=== PATIENT | male | born 1975 | race Caucasian/White ===

== ENCOUNTER 2018-05-20 11:28 | Inpatient (IN) | payer MEDICAID ==
[~2018-05-20] VITALS: Ht 175.3 cm; Wt 88.3 kg
[2018-05-20] MEDS ORDERED: SODIUM CHLORIDE 0.9% 1,000 ML IVB ONE (12:03)
[2018-05-20 12:14] LABS: Urine Bacteria NONE SEEN /hpf (None Seen); Urine Blood 1+ /uL (Negative); Urine Specific Gravity 1.043 (1.001-1.035); Urine WBC 1 /hpf (0 - 3)
[2018-05-20] MEDS ORDERED: ONDANSETRON HCL 4 MG/2 ML VIAL IV ONE (12:15)
[2018-05-20 12:44] LABS: Basophils # (auto) 0 uL; Basophils % (auto) 0.2 % (0.0-2.0); Eosinophils # (auto) 0 uL; Hemoglobin 11.6 g/dL (13.5-17.5); Lymphocytes # (auto) 0.3 uL; Monocytes # (auto) 1.4 uL
[2018-05-20 12:46] LABS: Lymphocytes % (auto) 2.6 % (10.0-50.0); Mean Corpuscular Hemoglobin 23.4 pg (28.0-32.0); Mean Corpuscular Volume 70.8 fL (80.0-100.0); Monocytes % (auto) 13.1 % (0.0-12.0); Neutrophils % (auto) 84.1 % (37.0-80.0); Platelet Count (auto) 455 10^3/uL (140-450); Red Blood Cells 4.95 10^6/uL (4.5-5.90); Red Cell Distribution Width 15.7 % (11.8-14.3); White Blood Cell 10.7 10^3/uL (4.4-10.8)
[2018-05-20 12:58] LABS: INR 0.98 (0.9-1.15); Partial Thromboplastin Time 30.2 sec (23.78-33.04); Prothrombin Time 10.5 sec (9.27-12.13)
[2018-05-20 13:04] LABS: Amylase 41 U/L (25-115); Lipase 297 U/L (73-393)
[2018-05-20 13:08] LABS: Alanine Aminotransferase 26 U/L (16-61); Albumin 2.1 g/dL (3.4-5.0); Alkaline Phosphatase 104 U/L (45-117); Anion Gap 10 (5-15); Aspartate Aminotransferase 21 U/L (15-37); BUN/Creatinine Ratio 30.7; Bilirubin, Total 0.6 mg/dL (0.2-1.0); Blood Urea Nitrogen 27 mg/dL (7-18); Calcium 8.9 mg/dL (8.5-10.1); Carbon Dioxide 20 mmol/L (21-32); Chloride 97 mmol/L (98-107); GFR African American 122 mL/min; GFR Non-African American 101 mL/min; Glucose 325 mg/dL (74-106); Magnesium 2.7 mg/dL (1.6-2.6); Potassium 3.8 mmol/L (3.5-5.1); Sodium 127 mmol/L (136-145); Total Protein 8.3 g/dL (6.4-8.2)
[2018-05-20] MEDS ORDERED: MORPHINE SULF INJ 2 MG/ML SYRINGE 1ML IV ONE (14:00)
[2018-05-20] MEDS: SODIUM CHLORIDE 0.9% 1,000 ML IV SCH ×2 (14:26→22:33)
[2018-05-20] MEDS ORDERED: SODIUM CHLORIDE 0.9% 2,000 ML IV ONE (14:30)
[2018-05-20] MEDS ORDERED: MORPHINE SULF INJ 2 MG/ML SYRINGE 1ML IV PRN (14:30)
[2018-05-20] MEDS ORDERED: DEXTROSE (50%) 50ML SYRG IV PRN (14:30)
[2018-05-20] MEDS ORDERED: NITROGLYCERIN 0.4 MG SL TAB SL PRN (14:30)
[2018-05-20] MEDS ORDERED: ACETAMINOPHEN 325 MG TAB PO PRN (14:30)
[2018-05-20] MEDS ORDERED: TEMAZEPAM 15 MG CAP PO PRN (14:30)
[2018-05-20] MEDS: FAMOTIDINE 20 MG TAB PO SCH ×2 (15:07→22:00)
[2018-05-20] MEDS: ONDANSETRON HCL 4 MG/2 ML VIAL IV PRN (15:08)
[2018-05-20] MEDS: InsuLIN REG 1unit/0.01ml Soln (100units/ml) SC SCH ×2 (17:00→22:28)
[2018-05-20 17:12] VITALS: BP 138/88
[2018-05-20] MEDS: ACCU-CHEK COMFORT CURVE STRIP VI SCH ×2 (17:29→22:28)
[2018-05-20] MEDS: Glucerna Carbsteady SHAKE Vanilla 8oz PO SCH ×2 (18:00→19:23)
[2018-05-20] MEDS: MORPHINE SULF INJ 2 MG/ML SYRINGE 1ML IV PRN (19:45)
[2018-05-20] MEDS ORDERED: VANCOMYCIN PER PHARMACY 0 MG IV SCH (20:00)
[2018-05-20] MEDS ORDERED: PIPERACILLIN-TAZOB 3.375GM 100 ML IV ONE (21:30)
[2018-05-20] MEDS ORDERED: VANCOMYCIN 1GM/250ML 250 ML IV ONE (21:30)
[2018-05-20 22:43] VITALS: BP 127/87
[2018-05-21] MEDS: PIPERACILLIN-TAZOB 3.375GM 100 ML IV SCH ×3 (05:14→18:00)
[2018-05-21 05:17] VITALS: BP 120/74
[2018-05-21] MEDS: Glucerna Carbsteady SHAKE Vanilla 8oz PO SCH ×4 (06:00→22:00)
[2018-05-21] MEDS: MORPHINE SULF INJ 2 MG/ML SYRINGE 1ML IV PRN ×6 (06:59→21:13)
[2018-05-21] MEDS: SODIUM CHLORIDE 0.9% 1,000 ML IV SCH ×3 (07:06→23:46)
[2018-05-21 07:12] LABS: Basophils # (auto) 0 uL; Eosinophils # (auto) 0 uL; Lymphocytes # (auto) 0.4 uL; Platelet Count (auto) 446 10^3/uL (140-450)
[2018-05-21 07:14] LABS: Basophils % (auto) 0.1 % (0.0-2.0); Eosinophils % (auto) 0.3 % (0.0-7.0); Hematocrit 33.1 % (41.0-53.0); Hemoglobin 10.4 g/dL (13.5-17.5); Lymphocytes % (auto) 4.5 % (10.0-50.0); Mean Corpuscular Hgb Conc. 31.3 g/dL (32.0-36.0); Mean Corpuscular Volume 71.1 fL (80.0-100.0); Monocytes # (auto) 1.3 uL; Monocytes % (auto) 14.8 % (0.0-12.0); Neutrophils % (auto) 80.3 % (37.0-80.0); Red Blood Cells 4.66 10^6/uL (4.5-5.90); Red Cell Distribution Width 15.7 % (11.8-14.3); White Blood Cell 8.7 10^3/uL (4.4-10.8)
[2018-05-21 07:16] LABS: Mean Corpuscular Hemoglobin 22.3 pg (28.0-32.0)
[2018-05-21 07:26] LABS: Albumin 1.7 g/dL (3.4-5.0); BUN/Creatinine Ratio 31.4; Bilirubin, Total 0.5 mg/dL (0.2-1.0); Calcium 8.1 mg/dL (8.5-10.1); Potassium 3.6 mmol/L (3.5-5.1)
[2018-05-21] MEDS: ACCU-CHEK COMFORT CURVE STRIP VI SCH ×4 (07:30→21:11)
[2018-05-21] MEDS: InsuLIN REG 1unit/0.01ml Soln (100units/ml) SC SCH ×4 (07:30→22:40)
[2018-05-21] MEDS: DOCUSATE SOD 100 MG CAP PO PRN ×2 (07:32→17:12)
[2018-05-21 08:00] VITALS: BP 141/94
[2018-05-21] MEDS: HYDROcodone-ACET 5/325MG TAB PO PRN ×2 (09:10→18:37)
[2018-05-21] MEDS: FAMOTIDINE 20 MG TAB PO SCH ×2 (10:00→21:11)
[2018-05-21] MEDS: MULTIPLE VITAMIN TAB PO SCH (10:00)
[2018-05-21] MEDS: VANCOMYCIN 1,250 MG in D5W 5% 250 ML IV SCH ×2 (10:00→21:11)
[2018-05-21 12:00] VITALS: BP 127/75
[2018-05-21 16:00] VITALS: BP 123/85
[2018-05-21] MEDS: ONDANSETRON HCL 4 MG/2 ML VIAL IV PRN (21:12)
[2018-05-21 21:57] VITALS: BP 122/85
[2018-05-22] MEDS: PIPERACILLIN-TAZOB 3.375GM 100 ML IV SCH ×4 (02:17→18:00)
[2018-05-22 04:53] VITALS: BP 124/78
[2018-05-22] MEDS: ONDANSETRON HCL 4 MG/2 ML VIAL IV PRN (05:08)
[2018-05-22] MEDS: MORPHINE SULF INJ 2 MG/ML SYRINGE 1ML IV PRN (05:08)
[2018-05-22] MEDS: DOCUSATE SOD 100 MG CAP PO PRN (05:10)
[2018-05-22] MEDS: Glucerna Carbsteady SHAKE Vanilla 8oz PO SCH ×4 (06:00→22:15)
[2018-05-22] MEDS: ACCU-CHEK COMFORT CURVE STRIP VI SCH ×4 (06:53→22:15)
[2018-05-22] MEDS: InsuLIN REG 1unit/0.01ml Soln (100units/ml) SC SCH ×4 (06:53→22:15)
[2018-05-22 08:13] VITALS: BP 131/73
[2018-05-22] MEDS: SODIUM CHLORIDE 0.9% 1,000 ML IV SCH ×2 (08:17→16:26)
[2018-05-22 09:00] VITALS: BP 131/73
[2018-05-22] MEDS ORDERED: VANCOMYCIN 1GM/250ML 0 ML IV ONE (09:44)
[2018-05-22] MEDS: FAMOTIDINE 20 MG TAB PO SCH ×2 (10:00→22:14)
[2018-05-22] MEDS: MULTIPLE VITAMIN TAB PO SCH (10:01)
[2018-05-22] MEDS: VANCOMYCIN 1,250 MG in D5W 5% 250 ML IV SCH ×2 (10:01→22:00)
[2018-05-22 13:00] VITALS: BP 140/89
[2018-05-22 17:00] VITALS: BP 149/86
[2018-05-22 21:36] VITALS: BP 141/94
[2018-05-23] MEDS: SODIUM CHLORIDE 0.9% 1,000 ML IV SCH ×3 (00:46→23:01)
[2018-05-23 05:15] VITALS: BP 151/93
[2018-05-23] MEDS: PIPERACILLIN-TAZOB 3.375GM 100 ML IV SCH ×2 (05:53)
[2018-05-23] MEDS: Glucerna Carbsteady SHAKE Vanilla 8oz PO SCH ×4 (05:54→22:00)
[2018-05-23] MEDS: ACCU-CHEK COMFORT CURVE STRIP VI SCH ×4 (06:48→22:00)
[2018-05-23] MEDS: InsuLIN REG 1unit/0.01ml Soln (100units/ml) SC SCH ×4 (06:49→22:32)
[2018-05-23 06:59] LABS: Basophils # (auto) 0 uL; Basophils % (auto) 0.2 % (0.0-2.0); Eosinophils # (auto) 0 uL; Lymphocytes # (auto) 0.3 uL; Monocytes # (auto) 1.4 uL
[2018-05-23 07:01] LABS: Eosinophils % (auto) 0.3 % (0.0-7.0); Hematocrit 31.6 % (41.0-53.0); Hemoglobin 10.4 g/dL (13.5-17.5); Lymphocytes % (auto) 3.5 % (10.0-50.0); Mean Corpuscular Hemoglobin 23.1 pg (28.0-32.0); Mean Corpuscular Hgb Conc. 32.7 g/dL (32.0-36.0); Mean Corpuscular Volume 70.6 fL (80.0-100.0); Monocytes % (auto) 17.3 % (0.0-12.0); Neutrophils # (auto) 6.4 uL; Neutrophils % (auto) 78.7 % (37.0-80.0); Platelet Count (auto) 483 10^3/uL (140-450); Red Blood Cells 4.48 10^6/uL (4.5-5.90); Red Cell Distribution Width 15.9 % (11.8-14.3); White Blood Cell 8.1 10^3/uL (4.4-10.8)
[2018-05-23 07:23] LABS: BUN/Creatinine Ratio 19.3; Calcium 8.5 mg/dL (8.5-10.1)
[2018-05-23 08:00] VITALS: BP 135/90
[2018-05-23] MEDS: MULTIPLE VITAMIN TAB PO SCH (10:00)
[2018-05-23 12:00] VITALS: BP 141/84
[2018-05-23] MEDS: FAMOTIDINE 20 MG TAB PO SCH (13:02)
[2018-05-23] MEDS ORDERED: MORPHINE SULF INJ 2 MG/ML SYRINGE 1ML IV PRN ×2 (13:30)
[2018-05-23] MEDS ORDERED: HYDROcodone-ACET 5/325MG TAB PO PRN (13:30)
[2018-05-23] MEDS ORDERED: ALBUMIN 25% 50 ML IV STA (15:37)
[2018-05-23] MEDS ORDERED: ALBUMIN 25% 50 ML IV ONE (15:40)
[2018-05-23 16:00] VITALS: BP 123/67
[2018-05-23 22:26] VITALS: BP 118/72
[2018-05-24 04:59] VITALS: BP 138/68
[2018-05-24] MEDS ORDERED: MAGNESIUM CITRATE SOLUTION 300 ML BTL ONE (05:58)
[2018-05-24] MEDS: Glucerna Carbsteady SHAKE Vanilla 8oz PO SCH ×4 (06:00→22:00)
[2018-05-24] MEDS ORDERED: MAGNESIUM CITRATE SOLUTION 300 ML BTL PO ONE (06:00)
[2018-05-24] MEDS: ACCU-CHEK COMFORT CURVE STRIP VI SCH ×4 (06:14→22:55)
[2018-05-24] MEDS: InsuLIN REG 1unit/0.01ml Soln (100units/ml) SC SCH ×4 (06:15→22:56)
[2018-05-24 08:00] VITALS: BP 133/80
[2018-05-24] MEDS: MULTIPLE VITAMIN TAB PO SCH (10:00)
[2018-05-24] MEDS ORDERED: SODIUM CHLORIDE LOCK 10 ML ONE (10:08)
[2018-05-24] MEDS ORDERED: FLUMAZENIL 0.1 MG/ML INJ 10ML MDV IV ONE (10:08)
[2018-05-24] MEDS ORDERED: diphenhdrAMINE HCL 50 MG/1 ML VL ONE (10:08)
[2018-05-24] MEDS ORDERED: NALOXONE HCL 0.4 MG/ML VIAL ONE (10:08)
[2018-05-24] MEDS: fentaNYL CITRATE 100 MCG/2 ML VL ONE ×2 (11:22→11:29)
[2018-05-24] MEDS: MIDAZOLAM HCL 5 MG/ML-1ML VIAL ONE ×2 (11:22→11:29)
[2018-05-24] MEDS ORDERED: CEFTRIAXONE SODIUM 2 GM in D5W 5% 50 ML IV SCH (11:45)
[2018-05-24 13:00] VITALS: BP 127/80
[2018-05-24 16:00] VITALS: BP 137/87
[2018-05-24 22:00] VITALS: BP 133/92
[2018-05-25 05:20] VITALS: BP 110/69
[2018-05-25] MEDS: Glucerna Carbsteady SHAKE Vanilla 8oz PO SCH ×4 (06:00→21:55)
[2018-05-25 06:36] LABS: INR 1.08 (0.9-1.15); Partial Thromboplastin Time 29.5 sec (23.78-33.04); Prothrombin Time 11.5 sec (9.27-12.13)
[2018-05-25] MEDS: ACCU-CHEK COMFORT CURVE STRIP VI SCH ×4 (07:09→21:56)
[2018-05-25] MEDS: InsuLIN REG 1unit/0.01ml Soln (100units/ml) SC SCH ×4 (07:10→21:56)
[2018-05-25 08:54] VITALS: BP 107/66
[2018-05-25] MEDS: MULTIPLE VITAMIN TAB PO SCH (10:00)
[2018-05-25 12:13] VITALS: BP 130/87
[2018-05-25 17:04] VITALS: BP 139/79
[2018-05-25 17:12] LABS: Albumin 1.7 g/dL (3.4-5.0); Bilirubin, Total 0.3 mg/dL (0.2-1.0); Calcium 7.8 mg/dL (8.5-10.1); Total Protein 6.4 g/dL (6.4-8.2)
[2018-05-25] MEDS: PIPERACILLIN-TAZOB 3.375GM 100 ML IV SCH (18:31)
[2018-05-25] MEDS: SODIUM CHLORIDE 0.9% 1,000 ML IV SCH (18:33)
[2018-05-25 22:03] VITALS: BP 121/69
[2018-05-26 01:01] LABS: Urine Bacteria NONE SEEN /hpf (None Seen); Urine Blood Negative /uL (Negative); Urine Specific Gravity 1.024 (1.001-1.035); Urine WBC 1 /hpf (0 - 3)
[2018-05-26 05:50] VITALS: BP 127/82
[2018-05-26] MEDS: Glucerna Carbsteady SHAKE Vanilla 8oz PO SCH ×2 (06:00→12:31)
[2018-05-26] MEDS: PIPERACILLIN-TAZOB 3.375GM 100 ML IV SCH ×4 (06:09→17:22)
[2018-05-26] MEDS: SODIUM CHLORIDE 0.9% 1,000 ML IV SCH ×2 (06:09→22:42)
[2018-05-26] MEDS: ACCU-CHEK COMFORT CURVE STRIP VI SCH ×3 (06:10→17:23)
[2018-05-26] MEDS: InsuLIN REG 1unit/0.01ml Soln (100units/ml) SC SCH ×3 (06:10→17:23)
[2018-05-26 06:34] LABS: Basophils # (auto) 0 uL; Eosinophils # (auto) 0.1 uL; Eosinophils % (auto) 0.7 % (0.0-7.0); Monocytes # (auto) 1.3 uL; Monocytes % (auto) 12.6 % (0.0-12.0)
[2018-05-26 06:37] LABS: Basophils % (auto) 0.3 % (0.0-2.0); Hematocrit 31.1 % (41.0-53.0); Hemoglobin 10.3 g/dL (13.5-17.5); Lymphocytes # (auto) 0.5 uL; Mean Corpuscular Hemoglobin 23.1 pg (28.0-32.0); Mean Corpuscular Volume 70.1 fL (80.0-100.0); Neutrophils # (auto) 8.3 uL; Neutrophils % (auto) 81.4 % (37.0-80.0); Platelet Count (auto) 609 10^3/uL (140-450); Red Blood Cells 4.44 10^6/uL (4.5-5.90); Red Cell Distribution Width 16.6 % (11.8-14.3); White Blood Cell 10.2 10^3/uL (4.4-10.8)
[2018-05-26 06:53] LABS: % Iron Saturation 6.1 % (20-55)
[2018-05-26 06:54] LABS: BUN/Creatinine Ratio 8.5; Calcium 7.8 mg/dL (8.5-10.1); Potassium 3.7 mmol/L (3.5-5.1)
[2018-05-26] MEDS: MULTIPLE VITAMIN TAB PO SCH (08:42)
[2018-05-26 09:02] VITALS: BP 120/81
[2018-05-26] MEDS ORDERED: fentaNYL CITRATE 100 MCG/2 ML VL ONE (11:18)
[2018-05-26] MEDS ORDERED: ONDANSETRON HCL 4 MG/2 ML VIAL ONE (11:18)
[2018-05-26] MEDS ORDERED: SODIUM CHLORIDE LOCK 20 ML ONE (11:18)
[2018-05-26] MEDS ORDERED: MIDAZOLAM HCL 1MG/1ML-2 ML VIAL ONE (11:18)
[2018-05-26] MEDS ORDERED: PROPOFOL 10 MG/ML 20 ML IV ONE (11:18)
[2018-05-26] MEDS ORDERED: ROCURONIUM 10MG/ML 10ML VIAL IV ONE (11:18)
[2018-05-26] MEDS ORDERED: fentaNYL CITRATE 10 ML ONE (11:18)
[2018-05-26] MEDS ORDERED: HYDROmorphone HCL 2 MG/ML VL ONE (11:18)
[2018-05-26] MEDS ORDERED: ceFOXitin 2GM/100ML 100 ML IV ONE (11:22)
[2018-05-26] MEDS ORDERED: LIDOCAINE 1% (LOCAL ANESTH.) PF 5ml SDV ONE ×2 (11:33→12:13)
[2018-05-26] MEDS ORDERED: BUPIVACAINE W/ EPINEPH 0.25% INJ 50ML MDV ONE (11:33)
[2018-05-26] MEDS ORDERED: BUPIVACAINE 0.25% INJ 50ML VIAL ONE (11:33)
[2018-05-26] MEDS ORDERED: LIDOCAINE W/ EPINEPHRINE 1% 20ML VIAL ONE (11:33)
[2018-05-26] MEDS ORDERED: SODIUM FERR GLUC 62.5MG/5ML 125 MG in SODIUM CHL 0.9% 100 ML IV SCH (12:00)
[2018-05-26] MEDS ORDERED: fentaNYL CITRATE 5 ML ONE (13:35)
[2018-05-26] MEDS ORDERED: GLYCOPYRROLATE 0.2 MG/ML 1ML VIAL ONE (13:53)
[2018-05-26] MEDS ORDERED: NEOSTIGMINE 1 MG/ML INJ (10mg/10ML VIAL) ONE (13:53)
[2018-05-26] MEDS ORDERED: KETOROLAC TROMETH 60MG/2ML VIAL IM ONE (13:53)
[2018-05-26] MEDS ORDERED: ONDANSETRON HCL 4 MG/2 ML VIAL IV PRN (14:30)
[2018-05-26] MEDS ORDERED: MORPHINE SULFATE 4 MG/ML SYR/VIAL IV PRN (14:30)
[2018-05-26] MEDS ORDERED: DEXTROSE (50%) 50ML SYRG IV PRN (14:30)
[2018-05-26] MEDS ORDERED: METOCLOPRAMIDE HCL 5MG/ml INJ 2ml VIAL IV ONE (14:45)
[2018-05-26] MEDS ORDERED: HYDROmorphone HCL 2 MG/ML VL IV PRN (14:45)
[2018-05-26] MEDS ORDERED: ACCU-CHEK COMFORT CURVE STRIP VI ONE (14:45)
[2018-05-26] MEDS: MORPHINE SULF INJ 2 MG/ML SYRINGE 1ML IV PRN (16:16)
[2018-05-26] MEDS: ENOXAPARIN SOD 40 MG/0.4 ML SYRINGE SC SCH (16:16)
[2018-05-26 21:57] VITALS: BP 131/55
[2018-05-26] MEDS ORDERED: ACETAMINOPHEN IV 100 ML IV ONE (22:11)
[2018-05-26 22:35] LABS: Eosinophils # (auto) 0 uL; Eosinophils % (auto) 0.1 % (0.0-7.0); Neutrophils # (auto) 12.2 uL
[2018-05-26 22:37] LABS: Basophils # (auto) 0 uL; Basophils % (auto) 0.2 % (0.0-2.0); Hematocrit 37.4 % (41.0-53.0); Hemoglobin 11.8 g/dL (13.5-17.5); Lymphocytes # (auto) 0.3 uL; Lymphocytes % (auto) 2.4 % (10.0-50.0); Mean Corpuscular Hemoglobin 22.4 pg (28.0-32.0); Mean Corpuscular Hgb Conc. 31.4 g/dL (32.0-36.0); Mean Corpuscular Volume 71.5 fL (80.0-100.0); Monocytes # (auto) 1.1 uL; Monocytes % (auto) 8.3 % (0.0-12.0); Platelet Count (auto) 717 10^3/uL (140-450); Red Blood Cells 5.24 10^6/uL (4.5-5.90); Red Cell Distribution Width 16.5 % (11.8-14.3); White Blood Cell 13.8 10^3/uL (4.4-10.8)
[2018-05-26 22:39] LABS: BUN/Creatinine Ratio 8.2; Calcium 7.5 mg/dL (8.5-10.1); Potassium 4.2 mmol/L (3.5-5.1)
[2018-05-27] MEDS: PIPERACILLIN-TAZOB 3.375GM 100 ML IV SCH ×5 (00:08→23:05)
[2018-05-27] MEDS: InsuLIN REG 1unit/0.01ml Soln (100units/ml) SC SCH ×5 (00:08→23:15)
[2018-05-27] MEDS: ACCU-CHEK COMFORT CURVE STRIP VI SCH ×5 (00:09→23:15)
[2018-05-27] MEDS: MORPHINE SULF INJ 2 MG/ML SYRINGE 1ML IV PRN (02:02)
[2018-05-27 04:52] VITALS: BP 106/70
[2018-05-27] MEDS ORDERED: ACETAMINOPHEN IV 1000 MG/100ML (10MG/ML) IV PRN (06:45)
[2018-05-27 08:00] VITALS: BP 109/65
[2018-05-27] MEDS ORDERED: FUROSEMIDE 20 MG/2 ML VIAL IV ONE (09:00)
[2018-05-27] MEDS: PANTOPRAZOLE 40 MG/10 ML VIAL IV SCH (10:22)
[2018-05-27] MEDS: ENOXAPARIN SOD 40 MG/0.4 ML SYRINGE SC SCH (10:22)
[2018-05-27 12:00] VITALS: BP 120/63
[2018-05-27] MEDS: SODIUM CHLORIDE 0.9% 1,000 ML IV SCH (13:09)
[2018-05-27 17:00] VITALS: BP 126/70
[2018-05-27 20:00] VITALS: BP 111/76
[2018-05-27 21:55] VITALS: BP 119/76
[2018-05-28] MEDS: SODIUM CHLORIDE 0.9% 1,000 ML IV SCH ×2 (01:42→16:00)
[2018-05-28 04:32] VITALS: BP 108/68
[2018-05-28] MEDS: PIPERACILLIN-TAZOB 3.375GM 100 ML IV SCH ×4 (05:24→18:30)
[2018-05-28] MEDS: ACCU-CHEK COMFORT CURVE STRIP VI SCH ×3 (05:56→17:49)
[2018-05-28] MEDS: InsuLIN REG 1unit/0.01ml Soln (100units/ml) SC SCH ×3 (05:56→18:03)
[2018-05-28 06:29] LABS: Eosinophils # (auto) 0 uL; Hemoglobin 8.9 g/dL (13.5-17.5); Monocytes # (auto) 1.2 uL
[2018-05-28 06:31] LABS: Basophils # (auto) 0.1 uL; Basophils % (auto) 0.6 % (0.0-2.0); Eosinophils % (auto) 0.2 % (0.0-7.0); Hematocrit 27.9 % (41.0-53.0); Lymphocytes # (auto) 0.5 uL; Lymphocytes % (auto) 3.9 % (10.0-50.0); Mean Corpuscular Hemoglobin 22.4 pg (28.0-32.0); Mean Corpuscular Hgb Conc. 31.8 g/dL (32.0-36.0); Mean Corpuscular Volume 70.2 fL (80.0-100.0); Monocytes % (auto) 8.9 % (0.0-12.0); Neutrophils # (auto) 11.4 uL; Neutrophils % (auto) 86.4 % (37.0-80.0); Platelet Count (auto) 698 10^3/uL (140-450); Red Blood Cells 3.97 10^6/uL (4.5-5.90); Red Cell Distribution Width 16.6 % (11.8-14.3); White Blood Cell 13.2 10^3/uL (4.4-10.8)
[2018-05-28 06:44] LABS: BUN/Creatinine Ratio 12.5; Calcium 7.2 mg/dL (8.5-10.1)
[2018-05-28 08:38] VITALS: BP 117/67
[2018-05-28] MEDS ORDERED: CLINIMIX PER PHARMACY 0 ML IV SCH (09:00)
[2018-05-28 09:52] LABS: Phosphorus 3.1 mg/dL (2.5-4.90); Pre Albumin 3.5 mg/dL (20.0-40.0)
[2018-05-28] MEDS: PANTOPRAZOLE 40 MG/10 ML VIAL IV SCH (10:11)
[2018-05-28] MEDS: ENOXAPARIN SOD 40 MG/0.4 ML SYRINGE SC SCH (10:12)
[2018-05-28] MEDS ORDERED: IOHEXOL 300 MG/ML 100ML BOTTLE IJ ONE ×2 (12:02→14:14)
[2018-05-28 12:04] VITALS: BP 123/70
[2018-05-28 17:27] VITALS: BP 114/74
[2018-05-28] MEDS: CLINIMIX PER PHARMACY IV NR ×8 (21:03→21:50)
[2018-05-28 21:39] VITALS: BP 120/83
[2018-05-28] MEDS: MORPHINE SULF INJ 2 MG/ML SYRINGE 1ML IV PRN (21:54)
[2018-05-29] MEDS: PIPERACILLIN-TAZOB 3.375GM 100 ML IV SCH ×3 (00:14→11:55)
[2018-05-29] MEDS: ACCU-CHEK COMFORT CURVE STRIP VI SCH ×5 (00:15→23:30)
[2018-05-29] MEDS: InsuLIN REG 1unit/0.01ml Soln (100units/ml) SC SCH ×5 (00:15→23:55)
[2018-05-29 05:14] VITALS: BP 117/69
[2018-05-29 05:47] LABS: Basophils # (auto) 0.1 uL; Basophils % (auto) 0.6 % (0.0-2.0); Eosinophils # (auto) 0.1 uL; Eosinophils % (auto) 0.9 % (0.0-7.0); Hematocrit 27.3 % (41.0-53.0); Hemoglobin 8.6 g/dL (13.5-17.5); Lymphocytes # (auto) 0.7 uL; Lymphocytes % (auto) 8.2 % (10.0-50.0); Mean Corpuscular Hgb Conc. 31.6 g/dL (32.0-36.0); Mean Corpuscular Volume 69.6 fL (80.0-100.0); Monocytes # (auto) 0.9 uL; Monocytes % (auto) 10.8 % (0.0-12.0); Neutrophils # (auto) 6.9 uL; Neutrophils % (auto) 79.5 % (37.0-80.0); Platelet Count (auto) 708 10^3/uL (140-450); Red Blood Cells 3.93 10^6/uL (4.5-5.90); Red Cell Distribution Width 16.5 % (11.8-14.3); White Blood Cell 8.6 10^3/uL (4.4-10.8)
[2018-05-29 06:09] LABS: Albumin 1.3 g/dL (3.4-5.0); BUN/Creatinine Ratio 11.6; Bilirubin, Total 0.3 mg/dL (0.2-1.0); Calcium 7.7 mg/dL (8.5-10.1); Magnesium 2.3 mg/dL (1.6-2.6); Phosphorus 2.9 mg/dL (2.5-4.90); Potassium 3.7 mmol/L (3.5-5.1); Total Protein 6.1 g/dL (6.4-8.2)
[2018-05-29] MEDS: SODIUM CHLORIDE 0.9% 1,000 ML IV SCH ×2 (06:18→17:44)
[2018-05-29] MEDS ORDERED: PPN PER PHARMACY 0 ML IV SCH (08:15)
[2018-05-29 08:32] VITALS: BP 124/66
[2018-05-29] MEDS: PANTOPRAZOLE 40 MG/10 ML VIAL IV SCH (09:15)
[2018-05-29] MEDS: ENOXAPARIN SOD 40 MG/0.4 ML SYRINGE SC SCH (09:16)
[2018-05-29 13:00] VITALS: BP 132/62
[2018-05-29] MEDS ORDERED: MORPHINE SULF INJ 2 MG/ML SYRINGE 1ML IV PRN ×2 (14:00)
[2018-05-29] MEDS ORDERED: MORPHINE SULFATE 4 MG/ML SYR/VIAL IV PRN (14:00)
[2018-05-29] MEDS: cefTRIAXone 1GM/10ml IVPUSH 10 ML IV SCH (14:15)
[2018-05-29 17:22] VITALS: BP 149/85
[2018-05-29] MEDS ORDERED: PPN PER PHARMACY IV NR ×10 (20:00)
[2018-05-29 22:00] VITALS: BP 124/71
[2018-05-30 05:44] VITALS: BP 119/82
[2018-05-30] MEDS: ACCU-CHEK COMFORT CURVE STRIP VI SCH ×4 (06:35→23:54)
[2018-05-30] MEDS: InsuLIN REG 1unit/0.01ml Soln (100units/ml) SC SCH ×4 (06:42→23:54)
[2018-05-30 08:32] VITALS: BP 123/67
[2018-05-30] MEDS: ENOXAPARIN SOD 40 MG/0.4 ML SYRINGE SC SCH (09:25)
[2018-05-30] MEDS: PANTOPRAZOLE 40 MG/10 ML VIAL IV SCH (09:25)
[2018-05-30] MEDS: cefTRIAXone 1GM/10ml IVPUSH 10 ML IV SCH (09:25)
[2018-05-30] MEDS: SODIUM CHLORIDE 0.9% 1,000 ML IV SCH (09:36)
[2018-05-30 11:17] LABS: Albumin 1.3 g/dL (3.4-5.0); BUN/Creatinine Ratio 9.6; Bilirubin, Total 0.1 mg/dL (0.2-1.0); Calcium 7.5 mg/dL (8.5-10.1); Magnesium 2.1 mg/dL (1.6-2.6); Phosphorus 2.5 mg/dL (2.5-4.90); Potassium 3.8 mmol/L (3.5-5.1); Total Protein 6.4 g/dL (6.4-8.2)
[2018-05-30 13:00] VITALS: BP 132/78
[2018-05-30 17:07] VITALS: BP 127/93
[2018-05-30] MEDS ORDERED: TPN PER PHARMACY IV NR ×10 (20:00)
[2018-05-30] MEDS ORDERED: PPN PER PHARMACY IV NR ×11 (20:00)
[2018-05-30 21:41] VITALS: BP 135/95
[2018-05-31 04:59] VITALS: BP 119/88
[2018-05-31] MEDS: SODIUM CHLORIDE 0.9% 1,000 ML IV SCH (05:16)
[2018-05-31] MEDS: InsuLIN REG 1unit/0.01ml Soln (100units/ml) SC SCH ×3 (05:22→18:00)
[2018-05-31] MEDS: ACCU-CHEK COMFORT CURVE STRIP VI SCH ×3 (05:22→18:00)
[2018-05-31 08:41] VITALS: BP 121/80
[2018-05-31] MEDS ORDERED: ceFAZolin 1GM VL ONE (08:56)
[2018-05-31] MEDS ORDERED: LIDOCAINE 1% HCL (LOCAL ANESTH.) INJ 20ML MDV ONE (08:56)
[2018-05-31] MEDS ORDERED: HEPARIN 1,000 UNITS/ml 1ML VIAL ONE (08:57)
[2018-05-31] MEDS ORDERED: HEPARIN SODIUM (PORCINE) 5000 UNITS/ML 1ML VIAL ONE ×2 (08:57→09:39)
[2018-05-31] MEDS: cefTRIAXone 1GM/10ml IVPUSH 10 ML IV SCH (09:00)
[2018-05-31] MEDS: PANTOPRAZOLE 40 MG/10 ML VIAL IV SCH (09:13)
[2018-05-31] MEDS ORDERED: HYDROmorphone HCL 2 MG/ML VL IV PRN ×2 (09:15)
[2018-05-31] MEDS ORDERED: ACCU-CHEK COMFORT CURVE STRIP VI ONE (09:15)
[2018-05-31] MEDS: ENOXAPARIN SOD 40 MG/0.4 ML SYRINGE SC SCH (09:15)
[2018-05-31] MEDS ORDERED: ONDANSETRON HCL 4 MG/2 ML VIAL IV ONE (09:15)
[2018-05-31] MEDS ORDERED: NALOXONE HCL 0.4 MG/ML VIAL IV PRN (09:15)
[2018-05-31] MEDS ORDERED: ceFAZolin 1GM/50ML 100 ML IV ONE (09:36)
[2018-05-31] MEDS ORDERED: BUPIVACAINE W/ EPINEPH 0.5% MPF 30ML VIAL IJ ONE (09:39)
[2018-05-31] MEDS ORDERED: BUPIVACAINE HCL 50 ML ONE (09:39)
[2018-05-31] MEDS ORDERED: fentaNYL CITRATE 100 MCG/2 ML VL ONE (09:44)
[2018-05-31] MEDS ORDERED: LIDOCAINE 2% (LOCAL ANESTH.) PF 5ml SDV ONE (09:44)
[2018-05-31] MEDS ORDERED: MIDAZOLAM HCL 1MG/1ML-2 ML VIAL ONE ×2 (09:44→09:56)
[2018-05-31] MEDS ORDERED: PROPOFOL 10 MG/ML 20 ML IV ONE (09:44)
[2018-05-31] MEDS ORDERED: METOCLOPRAMIDE HCL 5MG/ml INJ 2ml VIAL ONE (09:49)
[2018-05-31] MEDS ORDERED: diphenhdrAMINE HCL 50 MG/1 ML VL ONE (09:53)
[2018-05-31 13:00] VITALS: BP 118/78
[2018-05-31 14:04] LABS: Basophils # (auto) 0 uL; Basophils % (auto) 0.6 % (0.0-2.0); Eosinophils # (auto) 0 uL; Lymphocytes # (auto) 0.7 uL; Monocytes # (auto) 0.5 uL
[2018-05-31 14:07] LABS: Eosinophils % (auto) 0.6 % (0.0-7.0); Hematocrit 29.5 % (41.0-53.0); Hemoglobin 9.3 g/dL (13.5-17.5); Lymphocytes % (auto) 13.3 % (10.0-50.0); Mean Corpuscular Hemoglobin 22.1 pg (28.0-32.0); Mean Corpuscular Hgb Conc. 31.5 g/dL (32.0-36.0); Mean Corpuscular Volume 70.3 fL (80.0-100.0); Monocytes % (auto) 9.8 % (0.0-12.0); Neutrophils % (auto) 75.7 % (37.0-80.0); Platelet Count (auto) 722 10^3/uL (140-450); Red Cell Distribution Width 16.8 % (11.8-14.3); White Blood Cell 5.3 10^3/uL (4.4-10.8)
[2018-05-31 14:27] LABS: Albumin 1.5 g/dL (3.4-5.0); BUN/Creatinine Ratio 4.9; Bilirubin, Total 0.2 mg/dL (0.2-1.0); Magnesium 2.4 mg/dL (1.6-2.6); Phosphorus 3.5 mg/dL (2.5-4.90); Potassium 3.9 mmol/L (3.5-5.1); Total Protein 6.7 g/dL (6.4-8.2)
[2018-05-31] MEDS ORDERED: CIP500T PO (15:48)
[2018-05-31 16:45] VITALS: BP 109/75
[2018-05-31 18:04] VITALS: BP 109/75
== END 2018-05-31 20:45 | disposition home health service (06) | DRG 710 ==
LOC: ER 11:28 → TELE 11:29 → TELE-CENTR 16:30
PROVIDERS: ADMIT Internal Medicine; ATTEND Internal Medicine
PROC: 0DBN8ZX Excision of Sigmoid Colon, Via Natural or Artificial Opening Endoscopic, Diagnostic (ICD-10-PCS; 2018-05-24)
PROC: 0W9G3ZZ Drainage of Peritoneal Cavity, Percutaneous Approach (ICD-10-PCS; 2018-05-24)
PROC: 0DBU0ZX Excision of Omentum, Open Approach, Diagnostic (ICD-10-PCS; 2018-05-26)
PROC: 0DBW0ZX Excision of Peritoneum, Open Approach, Diagnostic (ICD-10-PCS; 2018-05-26)
PROC: 0DNW0ZZ Release Peritoneum, Open Approach (ICD-10-PCS; 2018-05-26)
PROC: 0D1M0Z4 Bypass Descending Colon to Cutaneous, Open Approach (ICD-10-PCS; principal; 2018-05-26 11:37)
PROC: 02H633Z Insertion of Infusion Device into Right Atrium, Percutaneous Approach (ICD-10-PCS; 2018-05-31)
PROC: B244ZZZ Ultrasonography of Right Heart (ICD-10-PCS; 2018-05-31)
DX: A41.9 Sepsis, unspecified organism (principal); E43 Unspecified severe protein-calorie malnutrition; K65.1 Peritoneal abscess; J15.0 Pneumonia due to Klebsiella pneumoniae; K65.2 Spontaneous bacterial peritonitis; R18.8 Other ascites; D62 Acute posthemorrhagic anemia; E11.65 Type 2 diabetes mellitus with hyperglycemia; E83.42 Hypomagnesemia; E87.1 Hypo-osmolality and hyponatremia; C19 Malignant neoplasm of rectosigmoid junction; D63.8 Anemia in other chronic diseases classified elsewhere; K58.0 Irritable bowel syndrome with diarrhea; R14.0 Abdominal distension (gaseous); I10 Essential (primary) hypertension; K63.9 Disease of intestine, unspecified; K66.0 Peritoneal adhesions (postprocedural) (postinfection); B96.1 Klebsiella pneumoniae [K. pneumoniae] as the cause of diseases classified elsewhere; D50.9 Iron deficiency anemia, unspecified; R09.02 Hypoxemia; Z83.3 Family history of diabetes mellitus; Z82.49 Family history of ischemic heart disease and other diseases of the circulatory system; Z85.048 Personal history of other malignant neoplasm of rectum, rectosigmoid junction, and anus; Z53.31 Laparoscopic surgical procedure converted to open procedure
CPT/HCPCS: 36415; 36600; 45380; 49083; 71045; 74176; 76700; 76942; 80048; 80053; 80202; 81001; 82040; 82150; 82378; 82805; 82962; 83036; 83540; 83550; 83605; 83690; 83735; 84100; 84443; 84478; 84484; 85025; 85610; 85730; 86301; 86850; 86900; 86901; 87040; 87070; 87075; 87077; 87186; 87205; 89051; 93005; 94761; 96361; 96365; 96375; A6257; C1788; C9113; J0131; J0690; J0694; J0696; J1815; J1885; J2001; J2250; J2405; J2543; J2704; J3490; J7060; J7131

== ENCOUNTER 2018-12-15 08:54 | Emergency (ER) | payer MEDICAID ==
[~2018-12-15] VITALS: Ht 175.3 cm; Wt 74.8 kg
[~2018-12-15 08:54] MED LIST: CIP500T PO
[2018-12-15] MEDS ORDERED: HYDROcodone-ACET 10/325MG TAB PO ONE (09:30)
[2018-12-15 09:35] LABS: Basophils # (auto) 0 uL; Basophils % (auto) 0.3 % (0.0-2.0); Eosinophils # (auto) 0.2 uL; Hemoglobin 13.1 g/dL (13.5-17.5); Lymphocytes # (auto) 0.6 uL; Lymphocytes % (auto) 7.4 % (10.0-50.0); Monocytes # (auto) 0.7 uL; Monocytes % (auto) 8.7 % (0.0-12.0)
[2018-12-15 09:37] LABS: Eosinophils % (auto) 2.5 % (0.0-7.0); Mean Corpuscular Hemoglobin 24.6 pg (28.0-32.0); Mean Corpuscular Volume 77.1 fL (80.0-100.0); Neutrophils # (auto) 6.6 uL; Neutrophils % (auto) 81.1 % (37.0-80.0); Platelet Count (auto) 208 10^3/uL (140-450); Red Blood Cells 5.32 10^6/uL (4.5-5.90); Red Cell Distribution Width 19.3 % (11.8-14.3); White Blood Cell 8.1 10^3/uL (4.4-10.8)
[2018-12-15] MEDS ORDERED: SODIUM CHLORIDE 0.9% 1,000 ML IV ONE (09:45)
[2018-12-15] MEDS ORDERED: KETOROLAC TROMETH 30 MG/ML 1ML VIAL IV ONE (09:45)
[2018-12-15 09:53] LABS: Alanine Aminotransferase 31 U/L (16-61); Albumin 3.5 g/dL (3.4-5.0); Anion Gap 7 (5-15); Aspartate Aminotransferase 16 U/L (15-37); Blood Urea Nitrogen 14 mg/dL (7-18); Carbon Dioxide 24 mmol/L (21-32); Chloride 104 mmol/L (98-107); Glucose 297 mg/dL (74-106); Magnesium 1.8 mg/dL (1.6-2.6); Potassium 3.4 mmol/L (3.5-5.1); Sodium 135 mmol/L (136-145)
[2018-12-15 09:58] LABS: Alkaline Phosphatase 172 U/L (45-117); BUN/Creatinine Ratio 18.9; Bilirubin, Total 0.4 mg/dL (0.2-1.0); GFR African American 149 mL/min; GFR Non-African American 123 mL/min; Total Protein 8.6 g/dL (6.4-8.2)
[2018-12-15 11:34] LABS: Urine Bacteria NONE SEEN /hpf (None Seen); Urine Blood Negative /uL (Negative); Urine WBC 1 /hpf (0 - 3)
[2018-12-15 11:57] VITALS: BP 135/89
[2018-12-15] MEDS ORDERED: VANCOMYCIN 1GM/250ML 250 ML IV ONE (12:15)
[2018-12-15] MEDS ORDERED: PIPERACILLIN-TAZOB 3.375GM 100 ML IV ONE (12:15)
== END 2018-12-15 13:58 | disposition home or self-care (01) ==
LOC: EDBD 08:54 → ER 08:54
DX: C18.9 Malignant neoplasm of colon, unspecified (principal); K63.9 Disease of intestine, unspecified; E11.9 Type 2 diabetes mellitus without complications; Z79.899 Other long term (current) drug therapy
CPT/HCPCS: 36415; 74176; 80053; 81001; 83605; 83735; 84484; 85025; 87040; 93005; 96361; 96365; 96375; 99284; J1885; J2543; J3370; J7030